=== PATIENT | male | born 1935 | race American Indian/Alaskan Native ===

== ENCOUNTER → 2017-10-30 | Outpatient (CLI) | payer MEDICARE, OTHER, MEDICAID ==
[~2017-10-30] MED LIST: ASPI81TA94 PO; ATEN-65 PO; ATOR40TA69 PO; BRIM5DRO7 OP; COMODPT OD; FLU180SY9 IM; LATODPT OD; LOTE3.5O OP; METF-421 PO; NITR0.4T3 SL; PNEU0.5D3 IM; RAMI2.5C42 PO
[2017-10-30 16:36] LABS: PLATELET COUNT, AUTOMATED 189 K/uL (150-450)
== END ==
LOC: LAB 15:30
PROVIDERS: ATTEND Family Medicine
DX: I25.10 Atherosclerotic heart disease of native coronary artery without angina pectoris (principal); I10 Essential (primary) hypertension; E03.9 Hypothyroidism, unspecified; E11.9 Type 2 diabetes mellitus without complications
CPT/HCPCS: 36415; 82040; 82247; 82310; 82374; 82435; 82565; 82947; 83036; 84075; 84132; 84155; 84295; 84443; 84450; 84460; 84520; 85025

== ENCOUNTER → 2017-11-06 | Outpatient (CLI) | payer MEDICARE, OTHER, MEDICAID ==
[~2017-11-06] MED LIST changes: -METF-421 PO; +METF-452 PO; -RAMI2.5C42 PO; +RAMI2.5C43 PO; +REGADENOSON 0.4 MG/5 ML SYR ONE
--- NOTE | 2017-11-07 12:52 | RT STRESS TEST REPORT ---
FACILITY: [facility] [place] PATIENT NAME: ELGIN VARGAS : [id number] MR: [id number] V: [id number] EXAM DATE: ORDERING PHYSICIAN: LISA AMADOR TECHNOLOGIST: Dean Acquisition Time: 2017-11-06 14:22:25 Total Exercise Time: 00:01:00 Test Indications: CAD, SOB, DIABETIC Medications: SEE NUC MED SHEET Protocol: LEXISCAN Max HR: 093 BPM 66% of Pred: 140 BPM Max BP: 131/062 mmHG Max Work Load: 1.0 METS Impression No EKG changes to suggest ischemia Nuclear medicine report to follow Confirmed by LISA AMADOR ([id number]) on 11/07/2017 12:52:09 PM Referred By: Overread By: LISA AMADOR
--- NOTE | 2017-11-07 14:20 | RADIOLOGY IMAGING REPORT ---
FACILITY: [facility] PATIENT NAME: Reji Saenz : 1935 MR: [id number] V: [id number] EXAM DATE: ORDERING PHYSICIAN: СЕРГЕЙ ROOT TECHNOLOGIST: Location: [facility] Patient: Reji Saenz : 1935 Visit/Account:[id number] Date of Sevice: 11/06/2017 EXAMINATION: Single isotope SPECT imaging with regadenoson infusion and gated SPECT imaging. DATE OF EXAMINATION: 11/07/2017. DATE OF INTERPRETATION: 11/07/2017. REQUESTING PHYSICIAN: СЕРГЕЙ ROOT. INDICATION: The patient is a 82-year-old male evaluated for coronary disease. PROCEDURE: After informed consent the patient received an intravenous injection of 11.7 mCi of Tc-99 m sestamibi followed at an appropriate time interval by rest imaging. The patient then subsequently received an intravenous infusion of 0.4 mg of regadenoson per protocol without complication. Resting heart rate was 63 bpm with a peak heart rate of 93 bpm. Blood pressure at rest was 126 / 70 and fol lowing infusion was 131 / 62. Baseline EKG demonstrates sinus rhythm. There were no EKG changes of ischemia following infusion. Symptoms were nonspecific. The patient then received an intravenous in jection of 28.2 mCi of Tc-99m sestamibi followed by stress imaging. RAW DATA: Examination of the summed raw data revealed a good quality study. MYOCARDIAL PERFUSION: The tomographic images demonstrate a small, mild inferior defect at rest that improves with prone imaging. Perfusion is normal at stress. There is no TID. GATED IMAGES: The gated images demonstrate normal ejection fraction 56% with normal wall motion and thickening. IMPRESSION: 1. Nondiagnostic Lexiscan stress ECG 2. Normal myocardial perfusion scan with diaphragmatic attenuation. 3. Normal LV systolic function; LVEF 56%. 4. Based on the results of this exam, the patient appears to be at low risk for future cardiovascular events. Report Dictated By: Gokul Rees at 11/07/2017 2:12 PM Report E-Signed By: Gokul Rees at 11/07/2017 2:17 PM WSN:[id number]
== END ==
LOC: RAD 12:07
PROVIDERS: ATTEND Family Medicine
DX: I25.10 Atherosclerotic heart disease of native coronary artery without angina pectoris (principal); R06.02 Shortness of breath
CPT/HCPCS: 78452; 93017; A9500; J2785

== ENCOUNTER → 2017-12-19 | Outpatient (CLI) | payer MEDICARE, OTHER, MEDICAID ==
[~2017-12-19] MED LIST changes: -REGADENOSON 0.4 MG/5 ML SYR ONE
[2017-12-19 11:21] LABS: LDL CHOLESTEROL 65 mg/dl
== END ==
LOC: LAB 10:30
PROVIDERS: ATTEND Family Medicine
DX: I25.10 Atherosclerotic heart disease of native coronary artery without angina pectoris (principal); E11.9 Type 2 diabetes mellitus without complications; E03.9 Hypothyroidism, unspecified; I10 Essential (primary) hypertension; E78.5 Hyperlipidemia, unspecified; D64.9 Anemia, unspecified
CPT/HCPCS: 36415; 82040; 82247; 82310; 82374; 82435; 82465; 82565; 82607; 82728; 82746; 82947; 83540; 83550; 83718; 84075; 84132; 84155; 84295; 84450; 84460; 84478; 84520

== ENCOUNTER → 2017-12-19 | Outpatient (CLI) | payer MEDICARE, OTHER, MEDICAID ==
--- NOTE | 2017-12-19 13:09 | RADIOLOGY IMAGING REPORT ---
FACILITY: [facility] [place] PATIENT NAME: Reji Saenz : 1935 MR: [id number] V: [id number] EXAM DATE: ORDERING PHYSICIAN: ENRIQUETA HUTSON TECHNOLOGIST: [place] [facility] [place] Reji aSenz : 1935 Visit/Account:[id number] Date of Sevice: 12/19/2017 CAROTID HISTORY: Carotid stenosis COMPARISON: None. FINDINGS: Grayscale, duplex and color Doppler interrogation of the extracranial carotid and vertebral arteries was performed bilateral. On the right, peak systolic velocities within the common and internal carotid arteries are 111 and 24 4 cm/sec respectively. There is extensive plaque at the right carotid bulb extending into the proxim al right internal and external carotid arteries. Antegrade flow within the common, internal and exte rnal carotid arteries as well as vertebral artery. ICA/CCA ratio 2.96. On the left, peak systolic velocities within the common and internal carotid arteries are 121 and 127 cm/sec respectively. There is a small amount of plaque at the left carotid bulb. Antegrade flow wi thin the common, internal and external carotid arteries as well as vertebral artery. ICA/CCA ratio 1. 2. IMPRESSION: There is extensive plaque at the right carotid bulb extending into the proximal right internal and ex ternal carotid arteries. Elevated peak systolic velocities at the right carotid bulb and right inter nal carotid artery are consistent with a greater than 70% stenosis Mild amount of plaque in the left carotid bulb with a less than 50% stenosis in the left ICA Velocity criteria are extrapolated from diameter data as defined by the Society of Radiologists in [facility] Consensus Conference Radiology 2003; 229;340-346 Report Dictated By: Leanne Macdonald MD at 12/19/2017 1:01 PM Report E-Signed By: Leanne Macdonald MD at 12/19/2017 1:04 PM WSN:[email or web address]
== END ==
LOC: US 02:44
PROVIDERS: ATTEND Internal Medicine Cardiovascular Disease
DX: I65.23 Occlusion and stenosis of bilateral carotid arteries (principal)
CPT/HCPCS: 93880

== ENCOUNTER → 2017-12-29 | Outpatient (CLI) | payer MEDICARE, OTHER, MEDICAID ==
[~2017-12-29] MED LIST changes: +IOPAMIDOL 76% 75 ML INFUS BTL 75 ML ONE; +NS(*) 0.9% 50 ML BAG 50 ML ONE
--- NOTE | 2017-12-29 13:39 | RADIOLOGY IMAGING REPORT ---
FACILITY: [facility] [place] PATIENT NAME: Reji Saenz : 1935 MR: [id number] V: [id number] EXAM DATE: ORDERING PHYSICIAN: ENRIQUETA HUTSON TECHNOLOGIST: Location: [facility] Patient: Reji Saenz : 1935 Visit/Account:[id number] Date of Sevice: 12/29/2017 EXAMINATION: CTA Neck with intravenous contrast HISTORY: Right carotid stenosis. TECHNIQUE: Overlapping thin sections were obtained during a bolus of IV contrast from the aortic ar ch through the [place] of [place]. Reconstruction of the source data set includes multiplanar 2D in the sagittal and coronal planes, and 3D coronal thin slab MIP series. Ham Clerk images have been st ored on PACS. Stenosis of the internal carotid arteries are calculated using NASCET criteria. One of the following dose optimization techniques was utilized in the performance of this exam: Autom ated exposure control; adjustment of the mA and/or kV according to the patient's size; or use of an i terative reconstruction technique. Specific details can be referenced in the facility's radiology C T exam operational policy. CONTRAST: 75 mL of IV Isovue-370 COMPARISON: Carotid ultrasound dated 12/19/2017. FINDINGS: Angiographic findings: Aortic arch and great vessels: Calcified and noncalcified plaque with no significant stenosis or an eurysm. Right CCA / ICA: Tortuous. Multifocal calcified plaque in the common carotid artery with approximat mannie 50% stenosis in the distal common carotid artery just before the carotid bifurcation. Carotid sip hon calcification with no significant stenosis. Left CCA / ICA: Tortuous. Multifocal calcified plaque in the common carotid and proximal internal c arotid artery with no significant stenosis. Vertebro-basilar: Calcified and noncalcified plaque at the origin of the left vertebral artery with approximately 60% stenosis. Calcified plaque at the origin of the right vertebral artery with no sig nificant stenosis. The left vertebral artery is dominant. Additional non-angiographic findings: Multilevel degenerative disc disease and facet hypertrophy in the cervical spine. The right maxillary sinus is completely opacified and the medial wall is bulging into the nasal cavit y. Heterogeneous density in this region. This could be a maxillary sinus mucocele, tumor, mycetoma, o r polyp. Leftward nasal septal deviation. IMPRESSION: 1. Scattered calcified plaque. Approximately 50% stenosis in the distal right common carotid artery j ust proximal to the bifurcation. Approximately 60% stenosis of the origin of the left vertebral arter y. Otherwise no significant stenosis in the neck. 2. The right maxillary sinus is completely opacified and the medial wall is bulging into the nasal ca vity. Heterogeneous density in this region. This could be a maxillary sinus mucocele, tumor, mycetoma , or polyp. Leftward nasal septal deviation. 3. Multilevel degenerative disc disease and facet hypertrophy in the cervical spine. Report Dictated By: Vincenzo Casarez MD at 12/29/2017 1:24 PM Report E-Signed By: Vincenzo Casarez MD at 12/29/2017 1:35 PM WSN:[id number]
== END ==
LOC: CT 01:09
PROVIDERS: ATTEND Internal Medicine Cardiovascular Disease
DX: I65.23 Occlusion and stenosis of bilateral carotid arteries (principal); J34.2 Deviated nasal septum; J32.0 Chronic maxillary sinusitis; M47.892 Other spondylosis, cervical region
CPT/HCPCS: 70498; J7050; Q9967

== ENCOUNTER 2018-01-19 00:53 | Day surgery (SDC) | payer MEDICARE, MEDICAID ==
[~2018-01-19] VITALS: Ht 172.7 cm; Wt 63.5 kg
[~2018-01-19 00:53] MED LIST changes: +CHOL10005 PO; +FERR325T24 PO; -IOPAMIDOL 76% 75 ML INFUS BTL 75 ML ONE; -NS(*) 0.9% 50 ML BAG 50 ML ONE
[2018-01-19] MEDS ORDERED: fentaNYL CITR 100 MCG/2 ML AMP ONE (12:56)
[2018-01-19] MEDS ORDERED: ONDANSETRON 4 MG/2 ML VIAL ONE (12:57)
[2018-01-19] MEDS ORDERED: DEXAMETHASONE SOD 4 MG/ML VIAL ONE (12:57)
[2018-01-19] MEDS ORDERED: PROPOFOL EMUL(*) 10MG/ML 20 ML 20 ML ONE (12:57)
[2018-01-19] MEDS ORDERED: LIDOCAINE MPF 1% 5 ML VIAL ONE (12:57)
[2018-01-19 13:47] VITALS: BP 137/70
[2018-01-19] MEDS ORDERED: LIDOCAINE/SOD BICARB 8.4% SYR ID ONE (13:55)
[2018-01-19] MEDS ORDERED: NORMOSOL R SOLN(*) 1000 ML BAG 1,000 ML IV PRN (13:55)
[2018-01-19] MEDS ORDERED: MIDAZOLAM 2 MG/2 ML VIAL IVP PRN (13:55)
[2018-01-19] MEDS ORDERED: ceFAZolin(*) 1 GM VIAL 1 GM in NS(*) 0.9% 100 ML ADDVANT BAG 100 ML IVPB ONE (13:55)
[2018-01-19] MEDS ORDERED: OXYMETAZOLINE SPRAY 15 ML BTL ONE (14:21)
[2018-01-19] MEDS ORDERED: BACITRACIN OINT 15 GM TUBE TP ONE (14:21)
[2018-01-19] MEDS ORDERED: LIDO/EPI 1% MDV 1:100,000 20ML INFIL ONE (14:21)
[2018-01-19] MEDS ORDERED: MUPIROCIN 2% OINT 22 GM TUBE TP ONE (14:22)
[2018-01-19] MEDS ORDERED: FAMOTIDINE 20 MG TAB PO ONE (14:55)
[2018-01-19] MEDS ORDERED: FLUC100T39 PO (15:36)
[2018-01-19] MEDS ORDERED: HYDR-653 PO (15:36)
[2018-01-19] MEDS ORDERED: APAP/HYDROCODONE 325/5 TAB ONE (15:44)
--- NOTE | 2018-01-20 03:05 | OPERATIVE REPORT 1 ---
EVENT DATE: January 19, 2018 SURGEON: Ernesto Hough Jr., MD ANESTHESIOLOGIST: Thomas Laura MD ANESTHESIA: LMA. PREOPERATIVE DIAGNOSIS Chronic right maxillary sinusitis. POSTOPERATIVE DIAGNOSIS Chronic right maxillary sinusitis. PROCEDURE PERFORMED Right maxillary antrostomy with removal of sinus contents. ESTIMATED BLOOD LOSS 10 mL. COMPLICATIONS None. INDICATIONS Please refer to the preoperative note. DESCRIPTION OF PROCEDURE The patient was positively identified in the preoperative area. He was accompanied there by his and sons. Risks were again explained, including but not limited to bleeding, infection, injury to the orbit, vision changes, cerebrospinal fluid leak, and those associated with anesthesia. He acknowledged understanding of those risks. He was then brought back to the operative suite and laid supine on the operative table, and anesthesia was administered. Once asleep, the patient was positioned and prepped and draped in the usual sterile fashion. I initially decongested the right nasal cavity by placing a cottonoid containing Afrin solution. This was subsequently removed and nasal endoscopy was performed. Approximately 1 mL of 1% lidocaine with epinephrine was infiltrated into the lateral nasal wall. An uncinectomy was performed. Gross fungal debris was encountered. This was carefully removed manually and irrigated with normal saline solution. The patient was then turned to Anesthesia for emergence. JAMES
== END 2018-01-19 16:05 | disposition home or self-care (01) ==
LOC: OR 00:53
PROVIDERS: ATTEND Otolaryngology
DX: J32.0 Chronic maxillary sinusitis (principal); I25.10 Atherosclerotic heart disease of native coronary artery without angina pectoris; I10 Essential (primary) hypertension; E78.5 Hyperlipidemia, unspecified; I25.2 Old myocardial infarction; E11.9 Type 2 diabetes mellitus without complications; Z87.891 Personal history of nicotine dependence; Z79.4 Long term (current) use of insulin
CPT/HCPCS: 31267; 36416; 82948; 87071; 87073; 87077; 87186; 87205; A9270; J0690; J1100; J2001; J2405; J2704; J3010; J7050

== ENCOUNTER → 2018-05-01 | Outpatient (CLI) | payer MEDICARE, OTHER, MEDICAID ==
[~2018-05-01] MED LIST changes: +FLU180SY11 IM; +FLUC100T39 PO; +HYDR-653 PO; +PNEI IM
[2018-05-01 15:53] LABS: PLATELET COUNT, AUTOMATED 195 K/uL (150-450)
== END ==
LOC: LAB 15:30
PROVIDERS: ATTEND Family Medicine
DX: D64.9 Anemia, unspecified (principal); E11.9 Type 2 diabetes mellitus without complications; I10 Essential (primary) hypertension; E03.9 Hypothyroidism, unspecified
CPT/HCPCS: 36415; 82040; 82247; 82310; 82374; 82435; 82565; 82947; 83036; 84075; 84132; 84155; 84295; 84439; 84443; 84450; 84460; 84520; 85025